=== PATIENT | male | born 1980 | race Caucasian/White ===

== ENCOUNTER 2018-09-04 10:04 | Emergency (ER) | payer BC, OTHER, SELFPAY ==
[2018-09-04] MEDS ORDERED: Tetracaine HCl 0.5% Ophth Soln 15 ML Bottle EA EYE SCH (10:45)
[2018-09-04] MEDS ORDERED: Ketorolac Tromethamine 60 MG/2 ML VIAL ONE (12:20)
[2018-09-04] MEDS ORDERED: Sodium Chloride 0.9% 1,000 ML ONE (13:53)
== END 2018-09-04 13:09 | disposition short-term general hospital (02) ==
LOC: NAV ERS 10:04
DX: T15.11XA Foreign body in conjunctival sac, right eye, initial encounter (principal); F41.9 Anxiety disorder, unspecified; F17.210 Nicotine dependence, cigarettes, uncomplicated
CPT/HCPCS: 96372; J1885; J7050

== ENCOUNTER 2024-04-11 15:17 | Emergency (ER) | payer BC ==
[2024-04-11] MEDS ORDERED: Fluorescein Opthalmic Strip ONE (15:56)
[2024-04-11] MEDS ORDERED: Tetracaine 0.5% PF 4 ML BOT ONE (15:56)
== END 2024-04-11 16:39 | disposition home or self-care (01) ==
LOC: NAV ERS 15:17
DX: S05.02XA Injury of conjunctiva and corneal abrasion without foreign body, left eye, initial encounter (principal); F17.210 Nicotine dependence, cigarettes, uncomplicated; W31.2XXA Contact with powered woodworking and forming machines, initial encounter; Y93.D3 Activity, furniture building and finishing
CPT/HCPCS: 99282